=== PATIENT | male | born 1950 | race Caucasian/White ===

== ENCOUNTER 2022-06-01 19:42 | Emergency (ER) | payer MEDICARE, MEDICAID ==
[~2022-06-01] VITALS: Ht 170.2 cm; Wt 91.0 kg
[2022-06-01 21:42] LABS: BASOPHILS % 0.3 % (0.0-2.0); EOSINOPHILS % 3.7 % (0.0-5.0); HEMATOCRIT. 38.9 % (42.0-52.0); HEMOGLOBIN. 12.9 g/dL (14.0-18.0); LYMPHOCYTES % 33.5 % (20.0-50.0); MEAN CORPUSCULAR VOLUME 87.7 fL (80.0-94.0); MEAN PLATELET VOLUME 7.9 fl (7.4-10.4); MONOCYTES % 13.1 % (2.0-8.0); NEUTROPHILS % 49.4 % (40.0-76.0); PLATELET 159 x1000/uL (130-400); RED BLOOD CELL COUNT 4.44 mill/uL (4.7-6.1); RED CELL DISTRIBUTION WIDTH 12.2 % (11.6-14.6)
[2022-06-01 21:50] LABS: CHLORIDE 111 mEq/L (98-107)
[2022-06-01 21:57] LABS: CREATINE KINASE 141 IU/L (39-308); ETHANOL BLOOD < 10 mg/dL
[2022-06-02 10:34] VITALS: BP 128/70
== END 2022-06-02 14:51 | disposition home or self-care (01) ==
LOC: ER 19:42
DX: F41.9 Anxiety disorder, unspecified (principal); Z59.00 Homelessness unspecified
CPT/HCPCS: 36415; 71045; 80053; 80165; 80185; 80307; 80320; 80329; 82140; 82550; 83605; 83880; 84484; 85025; 99285; G0480

== ENCOUNTER 2022-06-02 14:52 | Emergency (ER) | payer MEDICARE, MEDICAID ==
[~2022-06-02] VITALS: Ht 172.7 cm; Wt 80.0 kg
[2022-06-02 15:03] VITALS: BP 146/111
== END 2022-06-02 21:00 | disposition left against medical advice (07) ==
LOC: ER 15:06
DX: Z53.21 Procedure and treatment not carried out due to patient leaving prior to being seen by health care provider (principal)